=== PATIENT | female | born 1975 | race Caucasian/White ===

== ENCOUNTER 2016-06-14 11:27 | Emergency (ER) | payer OTHER ==
[~2016-06-14] VITALS: Wt 102.5 kg
[~2016-06-14 11:27] MED LIST: CIPR500T4 PO; IBUP-1542 PO; IBUP800T25 PO; TRAM50TA2 PO
--- NOTE | 2016-06-14 14:47 | ERA ---
ER Documentation Chief Complaint Date/Time DATE: 06/14/16 TIME: 14:41 Chief Complaint BACK PAIN FOR THE PAST MONTH NO NEURO DEFICIT. PAIN TO LEFT FOOT HPI Pt presents with her daughter who is a historian complaining of chronic lower back pain for about 8 weeks. Also complains of pain radiation all the way down into the left heel. Patient has tried multiple NSAIDs without relief. Patient cannot get in any position to be comfortable including supine. Pt denies h/o JAD including overuse, strain, or trauma; Denies saddle parasthesia, incontinence, or pain exacerbated by valsalva. Pt denies fever, chills, night sweats, weight loss, or increase symptoms at night. Denies h/o cardiovascular dz, sciatica, disk herniation, spinal stenosis, fibromyalgia cancer, HIV, IVDU, arthritis or recent surgery. ROS All systems reviewed and are negative except as per history of present illness. Medications Home Meds Active Scripts Ibuprofen* (Motrin*) 600 Mg Tab, 600 MG PO Q6H Y for PAIN AND OR ELEVATED TEMP, #30 TAB Prov:PANCHO CORTÉS MD 11/13/15 Tramadol HCl (Tramadol HCl) 50 Mg Tablet, 50 MG PO Q6 Y for PAIN, #12 TAB Prov:RANDY TRIPLETT MD 09/08/15 Ciprofloxacin Hcl* (Ciprofloxacin Hcl*) 500 Mg Tablet, 500 MG PO BID for 5 Days , TAB Prov:RANDY TRIPLETT MD 09/08/15 Ibuprofen* (Ibuprofen*) 800 Mg Tablet, 800 MG PO Q8, #10 TAB Prov:HUSAM SCHMITT MD 03/18/15 Allergies Allergies: Coded Allergies: No Known Drug Allergies (Verified Allergy, Unknown, 11/13/15) PMhx/Soc History of Surgery: Yes () Anesthesia Reaction: No Hx Neurological Disorder: No Hx Respiratory Disorders: No Hx Cardiac Disorders: No Hx Psychiatric Problems: No Hx Miscellaneous Medical Probl: Yes (urinary tract infection, chest pain) Hx Alcohol Use: No Hx Substance Use: No Hx Tobacco Use: No Physical Exam Vitals Vital Signs Date Time Temp Pulse Resp B/P Pulse Ox O2 Delivery O2 Flow Rate FiO2 06/14/16 11:28 98.5 78 20 160/85 98 Physical Exam Const: Patient seems to be in mild distress and in pain Head: Atraumatic Eyes: Normal Conjunctiva ENT: Normal External Ears, Nose and Mouth. Neck: Full range of motion..~ No meningismus. Resp: Clear to auscultation bilaterally Cardio: Regular rate and rhythm, no murmurs Abd: Soft, non tender, non distended. Normal bowel sounds Skin: No petechiae or rashes Back: No midline or flank tenderness Ext: No cyanosis, or edema Neur: Awake and alert Psych: Normal Mood and Affect Procedures/MDM Patient has pain radiating down to her left heel, pains been more than 6 weeks, and is not relieved in any position: For these reasons I decided to get an x- ray. Patient has denied all medications including pain medications. Departure Condition: Stable ROHAN MENG PA-C Jun 14, 2016 14:47
--- NOTE | 2016-06-14 16:41 | RADRPT ---
PROCEDURE: XR Lumbar Spine. CLINICAL INDICATION: Back pain. TECHNIQUE: Three views. AP, lateral and cone-down lateral view of the lumbar spine were obtained. COMPARISON: No prior studies are available for comparison. FINDINGS: There is normal stature and alignment of the vertebrae. There is no fracture. There is no lytic or blastic lesion. The disk height is normal. The paravertebral soft tissues are unremarkable. IMPRESSION: 1. Unremarkable images of the lumbar spine. RPTAT: QQ .Mario Thomas MD, Date Time Electronically viewed and signed by .Mario Thomas MD, on 06/14/2016 16:40 .R/
[2016-06-14] MEDS ORDERED: IBUP-1542 PO (17:17)
== END 2016-06-14 18:23 | disposition home or self-care (01) ==
LOC: FTE 11:27
DX: M54.5 Low back pain (principal)
CPT/HCPCS: 72100